=== PATIENT | male | born 1960 | race Caucasian/White ===

== ENCOUNTER 2017-07-31 09:08 | Day surgery (SDC) | payer OTHER ==
[2017-07-30 10:13] VITALS: BMI 31.6
--- NOTE | 2017-07-31 01:48 | HP ---
SHORT STAY HISTORY AND PHYSICAL DATE OF ADMISSION: 07/31/2017 HISTORY OF PRESENT ILLNESS: This is a 56-year-old male referred to me for a colonoscopy for colon ca ncer screening. The patient's bowel movements are regular. No family history of colon cancer. The patient has acid reflux and is on Prilosec. The patient gives history of dysphagia off and on. The dysphagia occurs mostly with solid food. He drinks some water to make food to go down. The patient comes for EGD and dilation because of dysphagia and a colonoscopy for colon cancer screening. ALLERGIES: PENICILLIN. SOCIAL HISTORY: The patient quit smoking in 2017. Drinks alcohol socially. MEDICAL ILLNESSES: 1. Hypertension. 2. Irregular heart rate and negative stress test in 2017. 3. Chronic acid reflux. 4. Arthritis - back pain. 5. Hyperlipidemia. 6. Back surgery x2. 7. Appendectomy. 8. Ventral hernia repair. PHYSICAL EXAMINATION: VITAL SIGNS: Pulse is 70, blood pressure 130/70. HEENT: Conjunctivae clear. CARDIOVASCULAR SYSTEM: First and second heart sounds normal. LUNGS: Clear to auscultation. ABDOMEN: Soft to palpate. No organomegaly. No tenderness. No masses. ADMITTING DIAGNOSES: 1. Chronic acid reflux, dysphagia. 2. Colon cancer screening. PLAN: EGD and colonoscopy.
[2017-07-31] MEDS ORDERED: PROPOFOL 200 MG/20 ML VIAL ONE (12:40)
[2017-07-31] MEDS ORDERED: Lidocaine 1% PF 5 ML VIAL ONE (12:40)
[2017-07-31] MEDS ORDERED: Ondansetron HCl/PF 4 MG/2 ML Vial ONE (14:11)
--- NOTE | 2017-07-31 20:49 | OP ---
DATE OF SURGERY: 07/31/2017 OPERATIVE PROCEDURE: Colonoscopy. PREOPERATIVE DIAGNOSIS: A 56-year-old male undergoing colonoscopy for colon cancer screeni ng. POSTOPERATIVE DIAGNOSES: 1. Sigmoid diverticulosis. 2. Diverticulosis of the ascending colon, right colon. 3. Hemorrhoids. PROCEDURE IN DETAIL: The patient was placed on his left lateral position and was given sedation by A nesthesia Department. A rectal exam was done before the scope was advanced into the rectum. No lesi on felt on rectal exam. A Pentax video colonoscope was introduced into the rectum and advanced all t he way into the cecum. The patient prep is fair. The patient has some fecal material coating the le ft colon and also some part of the right colon. Water was used to irrigate and wash out. The append ical opening, ileocecal valve, no pathology seen. The patient does have scattered diverticula over t he ascending colon area. The hepatic flexure, transverse colon, splenic flexure, and descending colo n, no pathology seen. The sigmoid colon showed again scattered diverticula. The patient is constant ly gagging and coughing during the procedure. I could not retroflex the scope in the rectum. Gissel jimenez, careful examination of the rectum showed hemorrhoids.
--- NOTE | 2017-08-01 08:19 | OP ---
DATE OF SURGERY: 07/31/2017 OPERATIVE PROCEDURES: 1. Esophagogastroduodenoscopy. 2. Esophageal dilation with Florentino size 52-Romanian in diameter. PREOPERATIVE DIAGNOSES: Dysphagia, chronic acid reflux. POSTOPERATIVE DIAGNOSES: 1. No definite esophageal narrowing seen. 2. Normal esophagus, stomach, and duodenum. Empiric dilation carried out with 52-Romanian Florentino dil ator. PROCEDURE IN DETAIL: The patient was placed on his left lateral position and was given sedation by A nesthesia Department. A Pentax video gastroscope under direct vision was passed down the oropharynx, past the GE junction, into the stomach. The vocal cords appeared healthy. The esophageal mucosa ap pears normal throughout the esophagus. The GE junction, no pathology seen. There is no definite eso phageal narrowing seen. The fundus, cardia, gastric body, gastric antrum, no pathology seen. The sc ope advanced into the duodenal bulb and descending duodenum. No lesions seen. The stomach was decom pressed and scope removed. Because of history of dysphagia, empiric dilation. A size Florentino 52-Romanian in diameter was passed down with no resistance. DISCHARGE PLANNING: This is a 56-year-old male who came for a colonoscopy and EGD. The co lonoscopy showed scattered diverticula and hemorrhoids. EGD showed no pathology. DISCHARGE RECOMMENDATIONS: 1. The patient advised to call me if he develops abdominal pain or hematochezia. 2. High-fiber diet. 3. Metamucil.
== END 2017-07-31 14:47 | disposition home or self-care (01) ==
LOC: SDC 09:08
PROVIDERS: ATTEND Internal Medicine Gastroenterology
PROC: 0DJ08ZZ Inspection of Upper Intestinal Tract, Via Natural or Artificial Opening Endoscopic (ICD-10-PCS; principal; 2017-07-31)
PROC: 0D757ZZ Dilation of Esophagus, Via Natural or Artificial Opening (ICD-10-PCS; principal; 2017-07-31)
PROC: 0DJD8ZZ Inspection of Lower Intestinal Tract, Via Natural or Artificial Opening Endoscopic (ICD-10-PCS; principal; 2017-07-31)
DX: Z12.11 Encounter for screening for malignant neoplasm of colon (principal); K57.30 Diverticulosis of large intestine without perforation or abscess without bleeding; K64.9 Unspecified hemorrhoids; K21.9 Gastro-esophageal reflux disease without esophagitis; I10 Essential (primary) hypertension; E78.5 Hyperlipidemia, unspecified; M19.90 Unspecified osteoarthritis, unspecified site; Z88.0 Allergy status to penicillin; Z87.891 Personal history of nicotine dependence; Z79.899 Other long term (current) drug therapy
CPT/HCPCS: J2001; J2405; J2704

== ENCOUNTER 2018-01-21 13:55 | Outpatient (CLI) | payer OTHER ==
[2018-01-21 14:25] LABS: Hemoglobin 13.5 g/dL (14.0-18.0); Mean Corpuscular HGB CONC 34.9 g/dL (32.0-36.0); Mean Corpuscular Volume 88.9 fL (78.0-98.0); Mean Platelet Volume 9.1 fL (7.4-10.4); Platelet Count 170 thou/uL (130-400); RBC Distribution Width 13.1 % (11.5-14.5); Red Blood Cell (RBC) Count 4.37 mill/uL (4.70-6.10); White Blood Cell (WBC) Count 11.9 thou/uL (4.8-10.8)
== END 2018-01-21 13:56 | disposition home or self-care (01) ==
LOC: LABBT 13:55
PROVIDERS: ATTEND Orthopaedic Surgery
DX: Z01.812 Encounter for preprocedural laboratory examination (principal); G56.01 Carpal tunnel syndrome, right upper limb
CPT/HCPCS: 85027

== ENCOUNTER 2018-01-21 14:36 | Outpatient (CLI) | payer OTHER ==
--- NOTE | 2018-01-21 15:46 | CT ---
CT LUMBAR SPINE: Multiple axial tomograms were obtained through the lumbar spine with multiplanar reconstruction. INDICATION: Lumbar lumbago and sciatic to the left. Prior surgery to lumbar spine. FINDINGS: The lumbar vertebrae maintain height and alignment. There is loss of disk space at L5-S1. Postopera tive changes at L5-S1 with pedicle screws at L5 and at S1 and posterior laminectomy change. At L1-2, no significant disk bulge. No central canal or foraminal stenosis. At L2-3, mild disk bulge. Mild to moderate facet hypertrophy and posterior epidural fat. Mild centr al canal stenosis. At L3-4, mild diffuse disk bulge. Facet and ligamentous hypertrophy with posterior epidural fat comp ressed the thecal sac resulting moderate central canal stenosis. At L4-5, posterior disk bulge. Prominent facet hypertrophy. Severe central canal stenosis. Pedicle screws at L5 appear in adequate position. At L5-S1, posterior laminectomy change. Posterior disk bulge and hypertrophic change. No significan t central canal stenosis. Bilateral foraminal stenosis, more pronounced on the right due to diffuse disk bulge and hypertrophic change. IMPRESSION: Moderate central canal stenosis at L3-4 and severe central canal stenosis at L4-5 as described above. POS: [facility]
== END 2018-01-21 14:37 | disposition home or self-care (01) ==
LOC: CT 14:36
PROVIDERS: ATTEND Family Medicine
DX: M54.42 Lumbago with sciatica, left side (principal); M54.41 Lumbago with sciatica, right side; M48.061 Spinal stenosis, lumbar region without neurogenic claudication
CPT/HCPCS: 72131

== ENCOUNTER 2018-01-23 06:01 | Day surgery (SDC) | payer OTHER ==
[2018-01-21 14:25] VITALS: BMI 33.1
[2018-01-23] MEDS ORDERED: Lidocaine 1% w/Epinephrine 1:100K 30 ML VIAL ONE (06:39)
[2018-01-23] MEDS ORDERED: Fentanyl 100 MCG/2 ML VIAL ONE ×2 (06:47→08:17)
[2018-01-23] MEDS ORDERED: Midazolam HCl 2 mg/2 ml Vial ONE (06:47)
[2018-01-23] MEDS ORDERED: Metoprolol Tartrate 5 MG/5 ML VIAL ONE (07:14)
[2018-01-23] MEDS ORDERED: CEFAZOLIN 2 GM/50 ML BAG ONE (07:21)
[2018-01-23] MEDS ORDERED: PROPOFOL 200 MG/20 ML VIAL ONE (12:02)
[2018-01-23] MEDS ORDERED: Lidocaine 1% PF 5 ML VIAL ONE (12:02)
[2018-01-23] MEDS ORDERED: Ondansetron PF 4 MG/2 ML Vial ONE (12:02)
--- NOTE | 2018-01-24 09:25 | OP ---
DATE OF PROCEDURE: 01/23/2018 PREOPERATIVE DIAGNOSIS: Right carpal tunnel syndrome. POSTOPERATIVE DIAGNOSIS: Right carpal tunnel syndrome. PROCEDURE PERFORMED: Right open carpal tunnel release. OPHTHALMOLOGY SURGICAL TECHNICIAN: None. ANESTHESIOLOGIST: Dr. Sky Roe. ANESTHESIA: The patient received LMA with 8 mL of lidocaine with epinephrine. ESTIMATED BLOOD LOSS: Less than 10 mL. TOURNIQUET TIME: 2 minutes. ANTIBIOTICS: Ancef 2 g. COMPLICATIONS: None. INDICATIONS FOR PROCEDURE: Mr. Prado is a 57-year-old male with 5 years of right wrist pain, the patient has night pain, sensory loss in the mean distribution. The patient had signs and symptoms of carpal tunnel syndrome. I discussed with him the risks and benefits of right open carpal tunnel release. I discussed complications of nerve studies versus injection, the patient desired to proceed with open release, he understood the risks and benefits of the procedure which included pain, scar, bleeding, infection, damage to vital structures, decreased range of motion and strength, damage to nerve, increased pain, and loss of life or limb. He understood the risks and benefits and elected to proceed. DESCRIPTION OF PROCEDURE: Time-out was performed designating the patient's right upper extremity as the operative site, based on site, consent, and markings. After time-out, the patient's right upper extremity was prepped and draped in the sterile fashion. He received about 4 mL of lidocaine in line with this incision, 1% lidocaine with epinephrine. I then took the tourniquet up to a total of 2 minutes, went down through skin to the palmar fascia. I used a hemostat to protect the nerve as I moved through the palmaris brevis and then through the transverse carpal ligament with scissors proximally, again protecting nerve, I then washed, let the tourniquet down after 2 minutes, controlled bleeding, washed the wound, closed with 4-0 nylon and injected a total of 5 more mL of lidocaine 1% with epi into the joint. We then placed the patient on soft tissue dressing. The patient will be remained on the soft tissue dressing until followup, and we will switch to bandage in 2 to 3 days, and place a Velcro wrist splint. He will follow with me in about 8 to 14 days. Job ID: [id number] [facility]
== END 2018-01-23 09:30 | disposition home or self-care (01) ==
LOC: SDC 06:01
PROVIDERS: ATTEND Orthopaedic Surgery
PROC: 01N50ZZ Release Median Nerve, Open Approach (ICD-10-PCS; principal; 2018-01-23)
DX: G56.01 Carpal tunnel syndrome, right upper limb (principal); E78.5 Hyperlipidemia, unspecified; G89.29 Other chronic pain; M54.9 Dorsalgia, unspecified; F41.1 Generalized anxiety disorder; I10 Essential (primary) hypertension; Z87.891 Personal history of nicotine dependence; Z79.899 Other long term (current) drug therapy; Z88.0 Allergy status to penicillin
CPT/HCPCS: 96374; J2001; J2250; J2405; J2704; J3010

== ENCOUNTER 2018-02-09 18:40 | Emergency (ER) | payer OTHER | END 2018-02-09 19:53 | disposition home or self-care (01) | LOC: SCSER 18:40 | DX: Z48.89 Encounter for other specified surgical aftercare (principal); I10 Essential (primary) hypertension | CPT/HCPCS: 99282 ==

== ENCOUNTER 2018-12-08 19:30 | Outpatient (CLI) | payer OTHER | END 2018-12-08 19:31 | disposition home or self-care (01) | LOC: SLEEPLAB 19:30 | PROVIDERS: ATTEND Family Medicine | DX: G47.33 Obstructive sleep apnea (adult) (pediatric) (principal); R53.83 Other fatigue; G47.00 Insomnia, unspecified; F41.9 Anxiety disorder, unspecified; R06.83 Snoring; I10 Essential (primary) hypertension; G47.10 Hypersomnia, unspecified; E66.9 Obesity, unspecified; Z68.30 Body mass index [BMI] 30.0-30.9, adult | CPT/HCPCS: 95811 ==

== ENCOUNTER 2019-01-22 12:34 | Outpatient (CLI) | payer OTHER ==
[2019-01-22 13:58] LABS: #Eosinphils 0.3 thou/uL (0.0-0.7); #Lymphocytes 2.8 thou/uL (1.20-3.40); #Monocytes 1.2 thou/uL (0.11-0.59); #Neutrophils 6.9 thou/uL (1.40-6.50); %Basophils 0.4 % (0.0-1.0); %Eosinophils 2.6 % (0.0-10.0); %Lymphocytes 25.2 % (21.0-51.0); %Monocytes 10.3 % (0.0-10.0); %Neutrophils 61.4 % (42.0-75.0); Hemoglobin 13.1 g/dL (14.0-18.0); Mean Corpuscular HGB CONC 32.8 g/dL (32.0-36.0); Mean Corpuscular Hemoglobin 29.5 pg (27.0-31.0); Mean Corpuscular Volume 90.1 fL (78.0-98.0); Mean Platelet Volume 9.2 fL (7.4-10.4); Platelet Count 216 thou/uL (130-400); RBC Distribution Width 12.8 % (11.5-14.5); Red Blood Cell (RBC) Count 4.42 mill/uL (4.70-6.10); White Blood Cell (WBC) Count 11.2 thou/uL (4.8-10.8)
[2019-01-22 14:01] LABS: Prothrombin Time 12.9 SEC (12.0-14.7)
[2019-01-22 14:28] LABS: Anion Gap 11 mmol/L (10-20); BUN (Urea Nitrogen) 15 mg/dL (8.4-25.7); Calc. Creatinine Clearance 0 mL/min (70-130); Calcium 9.5 mg/dL (7.8-10.44); Carbon Dioxide 29 mmol/L (22-29); Chloride 99 mmol/L (98-107); Estimated GFR-MDRD 88; Glucose 97 mg/dL (70-105); Potassium 4.7 mmol/L (3.5-5.1); Sodium 134 mmol/L (136-145)
--- NOTE | 2019-01-23 17:57 | EKG ---
Test Reason : Blood Pressure : / mmHG Vent. Rate : 079 BPM Atrial Rate : 079 BPM P-R Int : 172 ms QRS Dur : 100 ms QT Int : 372 ms P-R-T Axes : 004 043 -11 degrees QTc Int : 426 ms Normal sinus rhythm Normal ECG No previous ECGs available Confirmed by Alessandro COBIAN ([id number]) on 01/23/2019 5:56:42 PM Referred By: ESTEPHANIA Confirmed By:Alessandro COBIAN
== END 2019-01-22 12:35 | disposition home or self-care (01) ==
LOC: LABBT 12:34
PROVIDERS: ATTEND Orthopaedic Surgery
DX: Z01.818 Encounter for other preprocedural examination (principal); M16.11 Unilateral primary osteoarthritis, right hip
CPT/HCPCS: 80048; 85025; 85610; 87081; 93005; 93010

== ENCOUNTER 2019-01-27 06:40 | Inpatient (IN) | payer OTHER ==
[2019-01-27] MEDS ORDERED: Fentanyl 100 MCG/2 ML VIAL ONE ×5 (07:53→13:01)
[2019-01-27] MEDS ORDERED: Midazolam HCl 2 mg/2 ml Vial ONE (07:53)
[2019-01-27] MEDS ORDERED: Clindamycin/D5W 600 mg/50 ml Premix Bag ONE (07:57)
[2019-01-27] MEDS ORDERED: Tranexamic Acid 1,000 MG/10 ML VIAL ONE (07:57)
[2019-01-27] MEDS ORDERED: Sodium Chloride 0.9% 100 ML ONE (07:57)
[2019-01-27] MEDS ORDERED: Vancomycin 1.5 GRAM/300 ML BAG 1.5 GM in Premix Bag 1 BAG IVPB SCH ×3 (08:00→20:00)
[2019-01-27] MEDS ORDERED: Ondansetron PF 4 MG/2 ML Vial IVP PRN ×2 (09:00→11:29)
[2019-01-27] MEDS ORDERED: Zolpidem Tartrate 5 MG TAB PO PRN ×2 (09:00→11:29)
[2019-01-27] MEDS ORDERED: Promethazine HCl 25 MG/ML VIAL IM PRN ×3 (09:00→11:29)
[2019-01-27] MEDS ORDERED: diphenhydrAMINE 50 MG/ML VIAL IM PRN (09:00)
[2019-01-27] MEDS ORDERED: HYDROcodone/Acetaminophen 5/325 mg Tablet PO PRN (09:00)
[2019-01-27] MEDS ORDERED: diphenhydrAMINE 50 MG/ML VIAL IVP PRN (09:00)
[2019-01-27] MEDS ORDERED: Promethazine HCl 25 MG SUPP PR PRN (09:00)
[2019-01-27] MEDS ORDERED: diphenhydrAMINE 25 MG CAP PO PRN ×2 (09:00→11:29)
[2019-01-27] MEDS ORDERED: Hydrocerin (Eucerin) Cream 120 gm Jar TOP PRN (09:00)
[2019-01-27] MEDS ORDERED: Naloxone HCl 0.4 mg/ml Vial IVP PRN (09:00)
[2019-01-27] MEDS ORDERED: traMADol HCl 50 MG TAB PO PRN ×2 (09:00)
[2019-01-27] MEDS ORDERED: Naloxone HCl 0.4 mg/ml Vial IV PRN (09:00)
[2019-01-27] MEDS ORDERED: Bupivacaine 0.25% 10 ML VIAL EPIDURAL PRN (09:00)
[2019-01-27] MEDS ORDERED: ePHEDrine/0.9% NaCl/PF SYRINGE 50 mg/10 ml ONE ×2 (10:01→10:09)
[2019-01-27] MEDS ORDERED: Ropivacaine 0.2% HCl/PF 20 ML ONE (10:02)
[2019-01-27] MEDS ORDERED: Lidocaine 1.5% w/Epi 1:200K 30 ML VIAL (Epid Use) ONE (10:09)
[2019-01-27] MEDS ORDERED: Lidocaine 1% PF 5 ML VIAL ONE (10:09)
[2019-01-27] MEDS ORDERED: Dexamethasone 20 MG/5 ML VIAL ONE (10:09)
[2019-01-27] MEDS ORDERED: Glycopyrrolate 0.2 MG/ML 5 ML SYRINGE ONE ×2 (10:09→11:02)
[2019-01-27] MEDS ORDERED: Ondansetron PF 4 MG/2 ML Vial ONE (10:09)
[2019-01-27] MEDS ORDERED: PROPOFOL 200 MG/20 ML VIAL ONE (10:09)
[2019-01-27] MEDS ORDERED: Rocuronium Bromide 10 MG/ML (10ML VIAL) ONE (10:09)
[2019-01-27] MEDS ORDERED: Promethazine HCl 25 MG/ML VIAL SLOW IVP PRN (10:47)
[2019-01-27] MEDS ORDERED: Ondansetron HCl/PF 4 MG/2 ML Vial IVP PRN (10:47)
[2019-01-27] MEDS ORDERED: Acetaminophen 325 MG TAB PO PRN (11:29)
[2019-01-27] MEDS ORDERED: Vancomycin HCl 1.5 GM in Sodium Chloride 0.9% 250 ML 300 ML IVPB SCH (11:29)
--- NOTE | 2019-01-27 11:51 | RAD ---
EXAM: Single view of the right hip HISTORY: Ongoing hip arthroplasty COMPARISON: None FINDINGS: The patient has a right hip arthroplasty without perihardware lucency or fracture. Evaluati on is limited with this single view. IMPRESSION: Status post right hip arthroplasty without evidence of complication.
--- NOTE | 2019-01-27 11:52 | RAD ---
Exam: Single view of the pelvis and single view of the right hip HISTORY: Status post right hip arthroplasty COMPARISON: None FINDINGS: A single view the pelvis and single view of the right hip shows no evidence of acute fractu re or dislocation. The patient is status post right hip arthroplasty without perihardware lucency or fracture. Air in the soft tissues is from recent surgery. Mild degenerative changes seen in the le ft hip. Hardware seen in the lumbar spine. IMPRESSION: Status post right hip arthroplasty without evidence of complication.
--- NOTE | 2019-01-27 13:46 | OP ---
DATE OF PROCEDURE: 01/27/2019 PREOPERATIVE DIAGNOSIS: Right hip osteoarthritis. POSTOPERATIVE DIAGNOSIS: Right hip osteoarthritis. PROCEDURE PERFORMED: Right total hip arthroplasty. INDUSTRIAL SPRAYPAINTER: Michael Kumar PA-C ANESTHESIOLOGIST: Dr. Bell. ANESTHESIA: The patient received general with epidural. ESTIMATED BLOOD LOSS: 200 mL. TOURNIQUET TIME: None. IMPLANTS: Sandee Tritanium 56 mm hemispherical cluster shell, a Trident X3 10-degree 36 mm poly, Accolade II 130 degree neck angle, size 5 and a Biolox Delta ceramic head, 36 mm +5. ANTIBIOTICS: Ancef, vancomycin 1.5, TXA 1 g. COMPLICATIONS: None. HISTORY OF PRESENT ILLNESS: Mr. Prado is a 58-year-old male, who presented with right hip pain in the groin, increasing in quality. The patient had pain with internal and external rotation. The patient desired operative intervention for right total hip arthroplasty. I discussed to him the risks and benefits of surgery to include, pain, scar, bleeding, infection, decreased range of motion and strength, need for further surgeries, failure of procedure, continued pain despite surgical intervention, damage to vital structures, loss of life or limb, continued pain. The patient understood these risks and benefits and elected to proceed. DESCRIPTION OF PROCEDURE: Time-out was performed designating the patient's right lower extremity as the operative site based on site, consents, and marking. After time-out, the patient's right lower extremity was prepped and draped in sterile fashion. He was placed in lateral position. Bony prominences well-padded. We made a lateral incision down through the skin, down through the IT band, came down, took down the gluteus medius and minimus, T'd the capsule, excised the capsule, came back, took the labrum down to expose internal acetabulum. The head had been cut and removed to size about 56 mm. We reamed our cup starting in 44, medialized and coming up to a 56 mm cup, felt like he had a good overall rim fit, gave us some room for growth in the future if needed for revision. The patient had in place 56 mm hemispherical cluster Tritanium shell, impacted into place, placed our poly posterior and superior, rotated posterior and superior, washed, moved to our neck cut. We started with our vijay cutter, opening reamer, broached up to size 4, reamed and then placed a size 5. Overall, it felt like we had a good overall stability and fit, impacted into place, reduced +5. It felt like we had better improved his length. Overall alignment was good. We liked the position. We removed it and we washed. We placed a size 5 stem with a +5 ceramic head, reduced it into place, had a good shuck, improved length and alignment and had good overall line position. We then washed. We closed the minimus and medius with # 2 Vicryl, closed the IT band with 2 Vicryl, then 2 Stratafix, 0 Stratafix, 2-0 Stratafix and glue. The patient will be admitted to [place] postop protocol, weightbear as tolerated. We will follow up in-house. Job ID: [id number] [facility]
[2019-01-27] MEDS ORDERED: CEFAZOLIN 2 GM in Premix Bag 1 BAG IVPB SCH (14:00)
[2019-01-27] MEDS ORDERED: Gabapentin 300 MG CAP PO PRN (14:59)
[2019-01-27] MEDS: Sodium Chloride 0.9% 1,000 ML IV SCH (15:32)
[2019-01-27] MEDS: HYDROcodone/Acetaminophen 5/325 mg Tablet PO PRN ×2 (16:05→20:09)
[2019-01-27] MEDS: CEFAZOLIN 2 GM in Premix Bag 1 BAG IVPB SCH (16:06)
[2019-01-27] MEDS ORDERED: Acetaminophen 650 MG Suppository PR PRN (18:25)
--- NOTE | 2019-01-27 19:15 | CON ---
DATE OF CONSULTATION: 01/27/2019 TIME OF ASSESSMENT: 1800. REASON FOR CONSULTATION: Medical management. CONSULTING PHYSICIAN: Dr. Andrade. REASON FOR ADMISSION: Status post right hip arthroplasty. HISTORY OF PRESENT ILLNESS: Mr. Prado is a 58-year-old gentleman who has undergone a right total hip arthroplasty earlier today. The patient apparently has had right hip pain that was worsening due to right hip osteoarthritis. He underwent this elective procedure today and has been consulted for medical management. At this present time, the patient states his pain is under good control and he does have an epidural. Denies having any chest pain, palpitations, or shortness of breath. Denies having any nausea or vomiting. No abdominal pain. Has not had a bowel movement and has not passed any flatus. He has been up and walking with Physical Therapy. States he feels well and his pain is under good control. PAST MEDICAL HISTORY: 1. Hypertension. 2. Irregular heartbeat, on carvedilol, thinks he may up until he had atrial fibrillation. 3. Hyperlipidemia. 4. Chronic back pain. 5. Lower extremity peripheral neuropathy, managed with gabapentin and due to his previous back surgeries. 6. Ventral hernia. 7. Generalized anxiety. 8. History of tobacco use, but quit in 2016. 9. History of heavy alcohol consumption, but quit 6 months ago. 10. Asthma in childhood. PAST SURGICAL HISTORY: 1. Appendectomy in 2009. 2. L5-S1 back surgery in 2011. 3. Colon normal colonoscopy in July 2017. 4. Right total hip arthroplasty, 01/27/2019. FAMILY HISTORY: The patient states his sister was diagnosed with diabetes. Otherwise, he has negative a negative family history. SOCIAL HISTORY: He is a former smoker and quit in 2016. Reports drinking heavily until 6 months ago and has completely quit. He is and is a rancher. Denies any illicit drug use. CURRENT MEDICATIONS: 1. Amlodipine. 2. Carvedilol. 3. Gabapentin. 4. Hydrochlorothiazide. 5. Losartan. 6. Omeprazole. 7. Tramadol. PHYSICAL EXAMINATION: GENERAL: The patient appears well developed, well nourished, is in no acute distress. He is resting comfortably in bed. VITAL SIGNS: Temperature 97.8, pulse 65, respirations 16, O2 saturation 96% on room air, blood pressure 141/90. HEENT: Normocephalic and atraumatic. Pupils are equal, round, and reactive to light. Sclerae without icterus. Oropharynx is clear. NECK: Supple. No lymphadenopathy. LUNGS: Clear to auscultation bilaterally without any wheezes, rales, or rhonchi. CARDIAC: Regular rate and rhythm without audible murmurs, rubs, or gallops. ABDOMEN: Soft, nontender, nondistended. Normoactive bowel sounds present. EXTREMITIES: No lower leg swelling or edema. NEUROLOGIC: Alert and oriented x3. SKIN: Warm and dry. INVESTIGATIONS: EKG done preoperatively showed normal sinus rhythm with a heart rate of 79. LABORATORY STUDIES: Done on 01/22/2019, showed a white count of 11.2, hemoglobin 13.1, hematocrit 39.8, platelets 216, neutrophils 61.4%. Sodium 134, potassium 4.7, BUN 15, creatinine 0.89, GFR 88, glucose 97. IMAGING DATA: 1. Pelvic x-ray on 01/27/2019, showed status post right hip arthroplasty without evidence of complication. 2. Hip x-ray on 01/27/2019, status post right hip arthroplasty without evidence of complication. IMPRESSION AND PLAN: Mr. Prado is a pleasant 58-year-old gentleman who is status post right hip arthroplasty and has been referred for medical management. He has a history of hypertension and currently, his blood pressure is 141/90. We will resume home medications and monitor blood pressure. He has a history of an arrhythmia for which he is on carvedilol, this has been resumed as well. He is on omeprazole at home which is not informally and therefore, he will continue with pantoprazole. The pain is under good control and being managed by the Surgical Team. He remains on IV antibiotics. We will repeat laboratory studies. He is on a regular diet, which I have changed to a heart healthy diet. DVT prophylaxis with mechanical SCDs. The patient currently on IV fluids with normal saline at 100 mL/h. We will add BNP. The patient without any complaints. Has not yet had a bowel movement, but has been started on stool softeners. Thank you for this consultation. We will continue to follow the patient with you. The patient's case was discussed with attending who agrees with plan of care as described above. Job ID: [id number]
[2019-01-27 19:31] LABS: #Neutrophils 14.2 thou/uL (1.40-6.50); %Basophils 0.1 % (0.0-1.0); %Eosinophils 0.1 % (0.0-10.0); %Lymphocytes 6.3 % (21.0-51.0); %Monocytes 6.3 % (0.0-10.0); %Neutrophils 87.2 % (42.0-75.0); Hemoglobin 11.5 g/dL (14.0-18.0); Mean Corpuscular HGB CONC 33.4 g/dL (32.0-36.0); Mean Corpuscular Volume 89.8 fL (78.0-98.0); Mean Platelet Volume 9.2 fL (7.4-10.4); Platelet Count 235 thou/uL (130-400); RBC Distribution Width 12.5 % (11.5-14.5); Red Blood Cell (RBC) Count 3.83 mill/uL (4.70-6.10); White Blood Cell (WBC) Count 16.3 thou/uL (4.8-10.8)
[2019-01-27 19:50] LABS: Anion Gap 12 mmol/L (10-20); BUN (Urea Nitrogen) 18 mg/dL (8.4-25.7); Calc. Creatinine Clearance 127 mL/min (70-130); Calcium 8.6 mg/dL (7.8-10.44); Carbon Dioxide 24 mmol/L (22-29); Chloride 103 mmol/L (98-107); Estimated GFR-MDRD 81; Glucose 151 mg/dL (70-105); Potassium 4.2 mmol/L (3.5-5.1); Sodium 135 mmol/L (136-145)
[2019-01-27] MEDS: Aspirin 81 mg Enteric Coated Tablet PO SCH (20:10)
[2019-01-27] MEDS: Ferrous Gluconate 324 MG TAB PO SCH (20:11)
[2019-01-27] MEDS: Carvedilol 6.25 MG TAB PO SCH (20:11)
[2019-01-27] MEDS: Senokot S 8.6-50 MG TAB PO SCH (20:31)
[2019-01-27] MEDS ORDERED: Famotidine/PF 20 mg/2ml Vial SLOW IVP SCH (21:00)
[2019-01-28] MEDS: Sodium Chloride 0.9% 1,000 ML IV SCH ×4 (00:28→21:34)
[2019-01-28] MEDS: HYDROcodone/Acetaminophen 5/325 mg Tablet PO PRN ×6 (00:44→21:23)
[2019-01-28] MEDS: CEFAZOLIN 2 GM in Premix Bag 1 BAG IVPB SCH (00:45)
[2019-01-28] MEDS: fentaNYL Citrate/PF 500 MCG, Bupivacaine 10 ML in Sodium Chloride 0.9% 80 ML EPIDURAL SCH ×3 (02:11→23:39)
[2019-01-28] MEDS ORDERED: Digoxin 0.5 MG/2 ML AMP ONE (03:52)
[2019-01-28 06:19] LABS: #Eosinphils 0.1 thou/uL (0.0-0.7); #Lymphocytes 2.4 thou/uL (1.20-3.40); #Monocytes 1.6 thou/uL (0.11-0.59); #Neutrophils 9.5 thou/uL (1.40-6.50); %Basophils 0.2 % (0.0-1.0); %Eosinophils 0.5 % (0.0-10.0); %Lymphocytes 17.9 % (21.0-51.0); %Monocytes 11.7 % (0.0-10.0); %Neutrophils 69.6 % (42.0-75.0); Hemoglobin 11.6 g/dL (14.0-18.0); Mean Corpuscular HGB CONC 33.4 g/dL (32.0-36.0); Mean Corpuscular Hemoglobin 30.2 pg (27.0-31.0); Mean Corpuscular Volume 90.4 fL (78.0-98.0); Mean Platelet Volume 9.4 fL (7.4-10.4); Platelet Count 207 thou/uL (130-400); RBC Distribution Width 12.6 % (11.5-14.5); Red Blood Cell (RBC) Count 3.85 mill/uL (4.70-6.10); White Blood Cell (WBC) Count 13.6 thou/uL (4.8-10.8)
[2019-01-28 06:30] LABS: Anion Gap 11 mmol/L (10-20); BUN (Urea Nitrogen) 13 mg/dL (8.4-25.7); Calc. Creatinine Clearance 143 mL/min (70-130); Calcium 8.7 mg/dL (7.8-10.44); Carbon Dioxide 27 mmol/L (22-29); Chloride 104 mmol/L (98-107); Estimated GFR-MDRD Greater than 90; Glucose 131 mg/dL (70-105); Potassium 3.7 mmol/L (3.5-5.1); Sodium 138 mmol/L (136-145)
[2019-01-28] MEDS: Senokot S 8.6-50 MG TAB PO SCH ×2 (08:20→21:25)
[2019-01-28] MEDS: Ferrous Gluconate 324 MG TAB PO SCH ×2 (08:21→21:24)
[2019-01-28] MEDS: Multivitamin W/ Minerals 1 TAB PO SCH (08:21)
[2019-01-28] MEDS: Carvedilol 6.25 MG TAB PO SCH ×2 (08:26→21:24)
[2019-01-28] MEDS: Aspirin 81 mg Enteric Coated Tablet PO SCH ×2 (08:34→21:24)
[2019-01-28] MEDS: Losartan 25 MG TAB PO SCH (08:35)
[2019-01-28] MEDS: Amlodipine 10 MG TAB PO SCH (08:35)
[2019-01-28] MEDS ORDERED: Hydrochlorothiazide 25 MG TAB PO SCH (09:00)
[2019-01-28] MEDS: Hydrochlorothiazide 25 MG TAB PO SCH (09:13)
[2019-01-28 13:53] VITALS: BMI 30.3
--- NOTE | 2019-01-28 17:03 | PDOC.HOSPP ---
- Subjective Encounter Date: 01/28/19 Encounter Time: 07:20 Subjective: Pt seen for followup re: hypertension. feels well, No complaints. - Objective Vital Signs & Weight: Vital Signs (12 hours) Temp Pulse Resp BP Pulse Ox 01/28/19 14:00 98.5 F 78 16 142/69 H 97 01/28/19 08:00 67 112/64 01/28/19 07:41 98.6 F 75 20 100/56 L 98 01/28/19 05:02 78 Weight Admit Weight 230 lb Weight 230 lb I&O: 01/27/19 01/28/19 01/29/19 06:59 06:59 06:59 Intake Total 2980 Output Total 1950 Balance 1030 Result Diagrams: 01/28/19 05:26 01/28/19 05:26 Additional Labs: Labs and MARs reviewed by fl Hospitalist ROS - Review of Systems Cardiovascular: reports: other. denies: chest pain, palpitations, orthopnea, paroxysmal noc. dyspnea, edema, light headedness Gastrointestinal: denies: nausea, vomiting, abdominal pain, diarrhea, constipation, melena, hematochezia - Medication Medications: Active Medications Generic Name Dose Route Start Last Admin Trade Name Freq PRN Reason Stop Dose Admin Hydrocodone Bitart/Acetaminophen 2 tab 01/27/19 09:00 01/28/19 12:40 [place] 5/325 PO 2 tab Q4H PRN Administration For Moderate Pain 4-6 Amlodipine Besylate 10 mg 01/28/19 09:00 01/28/19 08:35 Norvasc PO Not Given DAILY GAURI Aspirin 81 mg 01/27/19 21:00 01/28/19 08:34 Ecotrin PO 81 mg BID GAURI Administration Carvedilol 12.5 mg 01/27/19 21:00 01/28/19 08:26 Coreg PO 12.5 mg BID GAURI Administration Ferrous Gluconate 324 mg 01/27/19 21:00 01/28/19 08:21 Fergon PO 324 mg BID GAURI Administration Hydrochlorothiazide 25 mg 01/28/19 09:00 01/28/19 09:13 Hydrochlorothiazide PO 25 mg DAILY GAURI Administration Fentanyl Citrate 500 mcg/ 100 mls @ 10 mls/hr 01/27/19 09:00 01/28/19 13:03 Bupivacaine HCl 10 ml/ Sodium EPIDURAL 100 mls Chloride INF GAURI Administration Sodium Chloride 1,000 mls @ 100 mls/hr 01/27/19 11:29 01/28/19 08:14 Normal Saline 0.9% IV Not Given .Q10H GAURI Iron/Minerals/Multivitamins 1 tab 01/28/19 09:00 01/28/19 08:21 Theragran M PO 1 tab DAILY GAURI Administration Losartan Potassium 100 mg 01/28/19 09:00 01/28/19 08:35 Cozaar PO Not Given DAILY GAURI Senna/Docusate Sodium 2 tab 01/27/19 21:00 01/28/19 08:20 Senokot S PO 2 tab BID GAURI Administration Tramadol HCl 100 mg 01/27/19 09:00 01/28/19 01:45 Ultram PO 100 mg Q6H PRN Administration Moderate Pain 4-6 - Exam General - other findings: Obese Eye: anicteric sclera ENT: moist mucosa Neck: supple, symmetric Heart: RRR Respiratory: CTAB Gastrointestinal: soft, non-tender Extremities - other findings: s/p R hip surgery Psychiatric: normal affect, normal behavior Hosp A/P (1) Hypertension Code(s): I10 - ESSENTIAL (PRIMARY) HYPERTENSION Status: Chronic (2) Dyslipidemia Code(s): E78.5 - HYPERLIPIDEMIA, UNSPECIFIED Status: Chronic - Plan HTN controlled. Continue statin.
[2019-01-29] MEDS: HYDROcodone/Acetaminophen 5/325 mg Tablet PO PRN ×3 (05:33→13:57)
[2019-01-29 06:14] LABS: Hemoglobin 11.4 g/dL (14.0-18.0); Mean Corpuscular Hemoglobin 30.2 pg (27.0-31.0); Mean Corpuscular Volume 88.8 fL (78.0-98.0); Mean Platelet Volume 9.2 fL (7.4-10.4); Platelet Count 209 thou/uL (130-400); RBC Distribution Width 12.7 % (11.5-14.5); Red Blood Cell (RBC) Count 3.76 mill/uL (4.70-6.10); White Blood Cell (WBC) Count 15.5 thou/uL (4.8-10.8)
[2019-01-29] MEDS: Ferrous Gluconate 324 MG TAB PO SCH (08:35)
[2019-01-29] MEDS: Aspirin 81 mg Enteric Coated Tablet PO SCH (08:35)
[2019-01-29] MEDS: Carvedilol 6.25 MG TAB PO SCH (08:35)
[2019-01-29] MEDS: Multivitamin W/ Minerals 1 TAB PO SCH (08:35)
[2019-01-29] MEDS: Losartan 25 MG TAB PO SCH (08:36)
[2019-01-29] MEDS: Hydrochlorothiazide 25 MG TAB PO SCH (08:36)
[2019-01-29] MEDS: Amlodipine 10 MG TAB PO SCH (08:36)
[2019-01-29 11:20] VITALS: BP 117/71; TEMP 99.3
[2019-01-29] MEDS: Senokot S 8.6-50 MG TAB PO SCH (13:22)
[2019-01-29] MEDS: Sodium Chloride 0.9% 1,000 ML IV SCH (13:41)
== END 2019-01-29 15:35 | disposition home or self-care (01) | DRG 470 ==
LOC: SJJU 06:40 → SURG A 14:04
PROVIDERS: ADMIT Orthopaedic Surgery; ATTEND Orthopaedic Surgery
PROC: 0SR904Z Replacement of Right Hip Joint with Ceramic on Polyethylene Synthetic Substitute, Open Approach (ICD-10-PCS; principal; 2019-01-27)
DX: M16.11 Unilateral primary osteoarthritis, right hip (principal); I10 Essential (primary) hypertension; I25.10 Atherosclerotic heart disease of native coronary artery without angina pectoris; J43.9 Emphysema, unspecified; I48.91 Unspecified atrial fibrillation; E66.9 Obesity, unspecified; E78.5 Hyperlipidemia, unspecified; F41.1 Generalized anxiety disorder; E11.42 Type 2 diabetes mellitus with diabetic polyneuropathy; Z79.01 Long term (current) use of anticoagulants; Z86.73 Personal history of transient ischemic attack (TIA), and cerebral infarction without residual deficits; Z87.891 Personal history of nicotine dependence; Z68.30 Body mass index [BMI] 30.0-30.9, adult; Z90.49 Acquired absence of other specified parts of digestive tract; Z79.4 Long term (current) use of insulin; Z79.899 Other long term (current) drug therapy
CPT/HCPCS: 36415; 72170; 80048; 83880; 85025; 85027; J0690; J1100; J1160; J2001; J2250; J2405; J2704; J2795; J3010; J3490

== ENCOUNTER 2021-03-30 13:34 | Outpatient (CLI) | payer OTHER | END 2021-03-30 13:35 | disposition home or self-care (01) | LOC: CT 13:34 | PROVIDERS: ATTEND Family Medicine | DX: S09.90XA Unspecified injury of head, initial encounter (principal); J34.1 Cyst and mucocele of nose and nasal sinus | CPT/HCPCS: 70450 ==

== ENCOUNTER 2021-06-27 13:14 | Outpatient (CLI) | payer OTHER | END 2021-06-27 13:15 | disposition home or self-care (01) | LOC: TBSIIMAG 13:14 | PROVIDERS: ATTEND Family Medicine | DX: R56.9 Unspecified convulsions (principal) | CPT/HCPCS: 70553 ==